=== PATIENT | male | born 1950 | race Caucasian/White ===

== ENCOUNTER 2022-03-11 17:05 | Emergency (ER) | payer MEDICARE, OTHER ==
[2022-03-11] MEDS ORDERED: Bacitracin Oint 1 GM U/D Packet TOP ONE (17:53)
[2022-03-11] MEDS ORDERED: Lidocaine 2% with EPINEPHrine 1:200,000 20 ML SDV INJECT ONE (17:53)
== END 2022-03-11 19:15 | disposition home or self-care (01) ==
LOC: DL.ED 17:05
DX: S61.316A Laceration without foreign body of right little finger with damage to nail, initial encounter (principal); S61.314A Laceration without foreign body of right ring finger with damage to nail, initial encounter; Z88.0 Allergy status to penicillin; Z86.16 Personal history of COVID-19; Z87.891 Personal history of nicotine dependence; W23.1XXA Caught, crushed, jammed, or pinched between stationary objects, initial encounter
CPT/HCPCS: 12001; 99282

== ENCOUNTER 2024-09-02 06:28 | Day surgery (SDC) | payer MEDICARE, OTHER ==
[2024-09-02] MEDS ORDERED: Midazolam 1 MG/ML 2 ML SDV IV ONE (06:29)
[2024-09-02] MEDS ORDERED: Sodium Chloride 0.9% 10 ML Syringe IV ONE (06:29)
[2024-09-02] MEDS ORDERED: Dexamethasone 4 MG/ML SDV IV ONE (06:29)
[2024-09-02] MEDS ORDERED: Acetaminophen 325 MG Tab PO PRN (06:30)
[2024-09-02] MEDS ORDERED: Ondansetron 4 MG/2 ML SDV IVPUSH PRN (06:30)
[2024-09-02] MEDS ORDERED: Acetaminophen/Codeine 300-30 MG Tab PO PRN (06:30)
[2024-09-02] MEDS: Proparacaine 0.5% Ophth Soln 15 ML Bottle EYELF ONE ×2 (06:54→08:33)
[2024-09-02] MEDS: Moxifloxacin 0.5% Ophth Soln 3 ML Bottle EYELF ONE (06:55)
[2024-09-02] MEDS: Povidone-Iodine 5% Sterile Ophth Soln 30 ML Bottle EYELF ONE ×2 (06:56→08:38)
[2024-09-02] MEDS: Tropicamide 1% Ophth Soln 15 ML Bottle EYELF ONE (06:57)
[2024-09-02] MEDS: Phenylephrine 10% Ophth Soln 5 ML Bot EYELF ONE (06:58)
[2024-09-02] MEDS: Timolol Maleate 0.5% Ophth Soln 5 ML Bottle EYELF ONE (06:59)
[2024-09-02] MEDS: Cataract Ophth Solution EYELF ONE (07:00)
[2024-09-02] MEDS: Sodium Chloride 0.9% 10 ML Syringe FLUSH PRN (07:06)
[2024-09-02] MEDS: Diclofenac Sodium 0.1% Ophth Soln 5 ML Bottle EYELF ONE (08:30)
[2024-09-02] MEDS: Apraclonidine 0.5% Ophth Soln 5 ML Bot EYELF ONE (08:30)
[2024-09-02] MEDS: VANCOmycin 500 MG SDV EYELF ONE (08:30)
[2024-09-02] MEDS: Lidocaine 1% 30 ML SDV INJECT ONE (08:30)
[2024-09-02] MEDS: Dexamethasone/Neomycin/Polymyxin B Ophth Oint 3.5 GM Tube EYELF ONE (08:39)
== END 2024-09-02 09:14 | disposition home or self-care (01) ==
LOC: DL.SDS 06:28
PROVIDERS: ATTEND Ophthalmology
DX: H25.812 Combined forms of age-related cataract, left eye (principal); E66.9 Obesity, unspecified; I10 Essential (primary) hypertension; Z68.41 Body mass index [BMI] 40.0-44.9, adult; Z88.8 Allergy status to other drugs, medicaments and biological substances; Z88.0 Allergy status to penicillin; Z87.891 Personal history of nicotine dependence; Z79.899 Other long term (current) drug therapy
CPT/HCPCS: 66984; A9270; J3370; J1100; J2250; J3490

== ENCOUNTER 2024-09-16 06:25 | Day surgery (SDC) | payer MEDICARE, OTHER ==
[~2024-09-16 06:25] MED LIST: Proparacaine 0.5% Ophth Soln 15 ML Bottle ONE
[2024-09-16] MEDS ORDERED: Moxifloxacin 0.5% Ophth Soln 3 ML Bottle EYERT ONE (06:30)
[2024-09-16] MEDS ORDERED: Acetaminophen/Codeine 300-30 MG Tab PO PRN (06:30)
[2024-09-16] MEDS ORDERED: Ondansetron 4 MG/2 ML SDV IVPUSH PRN (06:30)
[2024-09-16] MEDS ORDERED: Acetaminophen 325 MG Tab PO PRN (06:30)
[2024-09-16] MEDS: Sodium Chloride 0.9% 10 ML Syringe FLUSH PRN (06:53)
[2024-09-16] MEDS: Proparacaine 0.5% Ophth Soln 15 ML Bottle EYERT ONE ×2 (06:54→07:44)
[2024-09-16] MEDS: Povidone-Iodine 5% Sterile Ophth Soln 30 ML Bottle EYERT ONE ×2 (06:59→07:46)
[2024-09-16] MEDS: Tropicamide 1% Ophth Soln 15 ML Bottle EYERT ONE (07:00)
[2024-09-16] MEDS: Phenylephrine 10% Ophth Soln 5 ML Bot EYERT ONE (07:00)
[2024-09-16] MEDS: Timolol Maleate 0.5% Ophth Soln 5 ML Bottle EYERT ONE (07:01)
[2024-09-16] MEDS: Cataract Ophth Solution EYERT ONE (07:02)
[2024-09-16] MEDS ORDERED: Dexamethasone 4 MG/ML SDV ONE (07:16)
[2024-09-16] MEDS: Apraclonidine 0.5% Ophth Soln 5 ML Bot EYERT ONE (07:47)
[2024-09-16] MEDS: Diclofenac Sodium 0.1% Ophth Soln 5 ML Bottle EYERT ONE (07:47)
[2024-09-16] MEDS: Dexamethasone/Neomycin/Polymyxin B Ophth Oint 3.5 GM Tube EYERT ONE (07:48)
[2024-09-16] MEDS: Lidocaine 1% 30 ML SDV ONE (07:49)
[2024-09-16] MEDS: VANCOmycin 500 MG SDV EYERT ONE (07:50)
== END 2024-09-16 09:11 | disposition home or self-care (01) ==
LOC: DL.SDS 06:25
PROVIDERS: ATTEND Ophthalmology
DX: H25.811 Combined forms of age-related cataract, right eye (principal); E66.9 Obesity, unspecified; I10 Essential (primary) hypertension; Z68.41 Body mass index [BMI] 40.0-44.9, adult; Z87.891 Personal history of nicotine dependence; Z79.899 Other long term (current) drug therapy
CPT/HCPCS: 66984; A9270; J3370; J3490